=== PATIENT | female | born 1985 | race African-American/Black ===

== ENCOUNTER 2022-03-22 16:00 | Emergency (ER) | payer OTHER, SELFPAY ==
[2022-03-22 16:20] VITALS: BP 155/73; PULSE 93; RESP 20; TEMP 36.5; O2SAT 100
[2022-03-22 18:17] LABS: Appearance Urine Clear (Clear); Bilirubin Urine Negative (Negative); Color Urine Yellow (Yellow); Glucose Urine UA Negative (Negative); Ketones Urine Negative (Negative); Leukocyte Esterase Ur Negative LEU/UL (Negative); Nitrate Urine Negative (Negative); Protein Urine Negative (Negative); Specific Grav Ur >= 1.030 (1.001-1.035); Urobilinogen Urine 0.2 mg/dL (<2.0)
[2022-03-22 18:18] LABS: Mucus Urine Rare /lpf; RBC Urine 0-2 /hpf (0-2); Squamous Epithelial Cell Urine Few /hpf (Few); WBC Urine 0-3 /hpf
[2022-03-22 18:27] LABS: Add Urine Microscopic? YES; Blood Urine Trace-Intact (Negative)
--- NOTE | 2022-03-22 18:40 | ED.GENADULT ---
HPI - General Adult General Chief complaint: Urogenital-Female Stated complaint: VAG D/C X3D Time Seen by Provider: 03/22/22 16:45 History of Present Illness HPI narrative: Patient is a 36-year-old female who presents ER with vaginal discharge x3 days. Last unprotected sex 4 days ago and also 1/2 weeks ago. No urinary frequency urgency or dysuria. No lower abdominal pain. She was not told that she been exposed to an STI. She reports it is her same sexual partner but that she does not trust him. LMP 02/26/2022. Related Data Allergies Allergy/AdvReac Type Severity Reaction Status Date / Time No Known Allergies Allergy Verified 03/22/22 16:39 Review of Systems Review of Systems: All systems reviewed & are unremarkable except as noted in HPI and below Constitutional: Constitutional: Denies chills and Denies fever(s) Gastrointestinal: Gastrointestinal: Denies abdominal pain, Denies nausea and Denies vomiting Genitourinary: Genitourinary: Denies abnormal vaginal bleeding, Denies nocturia, Denies genital lesions, Denies dysuria, Denies pelvic pain and Reports vaginal discharge PMFSH Past Medical History Medical History (Updated 03/22/22 @ 18:45 by Mike Shaffer MD) Healthy female adult Surgical History Surgical History (Updated 03/22/22 @ 18:41 by Mike Shaffer MD) No history of previous surgery Social History Social History (Updated 03/22/22 @ 18:41 by Mike Shaffer MD) Smoking status: Never smoker Exam Narrative: GENERAL: Well-appearing, well-nourished, and in no acute distress. HEAD: Normocephalic, atraumatic. CHEST: Clear to auscultation. No respiratory distress. HEART: Regular rate and rhythm. Normal peripheral pulses. ABDOMEN: Soft, nontender, nondistended. : Normal external genitalia. Physiologic white discharge within the vagina, cervix closed and nonfriable, no vaginal bleeding. EXTREMITIES: Normal range of motion. No edema. NEURO: Alert and oriented x3. PSYCH: Normal mood and affect. Course Course Emergency Course: Patient would prefer to be treated for STI despite no evidence of STD at this time. Ceftriaxone here. Metronidazole and doxycycline for home. Vital Signs Vital signs: Vital Signs Temperature 97.7 F 03/22/22 16:20 Pulse Rate 93 03/22/22 16:20 Respiratory Rate 03/22/22 16:20 Blood Pressure 155/73 H 03/22/22 16:20 Pulse Oximetry 100 03/22/22 16:20 Oxygen Delivery Room Air 03/22/22 16:20 Temperature 97.7 F 03/22/22 16:20 Pulse Rate 93 03/22/22 16:20 Respiratory Rate 03/22/22 16:20 Blood Pressure 155/73 H 03/22/22 16:20 Pulse Oximetry 100 03/22/22 16:20 Oxygen Delivery Room Air 03/22/22 16:20 Medical Decision Making Vital Signs Vital Signs: Vital Signs Temperature 97.7 F 03/22/22 16:20 Pulse Rate 93 03/22/22 16:20 Respiratory Rate 03/22/22 16:20 Blood Pressure 155/73 H 03/22/22 16:20 Pulse Oximetry 100 03/22/22 16:20 Oxygen Delivery Room Air 03/22/22 16:20 Temperature 97.7 F 03/22/22 16:20 Pulse Rate 93 03/22/22 16:20 Respiratory Rate 03/22/22 16:20 Blood Pressure 155/73 H 03/22/22 16:20 Pulse Oximetry 03/22/22 16:20 Oxygen Delivery Room Air 03/22/22 16:20 Lab Data Labs: Lab Results 03/22/22 03/22/22 03/22/22 Range/Units 17:26 17:26 17:58 Urine Color Yellow (Yellow) Urine Appearance Clear (Clear) Urine pH 6.0 (5.0-9.0) Ur Specific [place] >= 1.030 (1.001-1.035) Urine Protein Negative (Negative) mg/dL Urine Glucose (UA) Negative (Negative) mg/dL Urine Ketones Negative (Negative) mg/dL Ur Blood (Man) Trace-intact (Negative) Urine Nitrate Negative (Negative) Urine Bilirubin Negative (Negative) Urine Urobilinogen 0.2 (<2.0) mg/dL Leukocyte Esterase Rfl Negative (Negative) BUSTER/UL Urine RBC 0-2 (0-2) /hpf Urine WBC 0-3 /hpf Ur Squamous Epith Cells Few (Few)
[2022-03-22] MEDS: cefTRIAXone 1 GM VIAL 0.5 GM IM (18:45)
== END 2022-03-22 18:51 | disposition home or self-care (01) ==
PROVIDERS: Emergency Provider Emergency Medicine
DX: N89.8 Other specified noninflammatory disorders of vagina (principal)
CPT/HCPCS: 81001; 81025; 87070; 87491; 87591; 87808; 96372; 99284; J0696

== ENCOUNTER 2022-06-05 23:46 | Emergency (ER) | payer OTHER, SELFPAY ==
--- NOTE | ~2022-06-05 | CT_ITS ---
EXAMINATION: CTA chest PE protocol DATE: 06/06/2022 02:12 INDICATION: Shortness of breath, chest pain, chest tightness for 2 days. Cough. Elevated d-dimer. TECHNIQUE: Computed tomography angiography (CTA) of the chest was performed with 100 mL Omnipaque-350 intravenous contrast timed to evaluate the pulmonary arteries. Coronal maximum intensity projection 3D-reconstructions were created by the technologist. Automated exposure control and iterative reconst ruction technique were employed. Exam dose: 314.12 mGy-cm total exam DLP. COMPARISON: 06/06/2022 PA and lateral chest FINDINGS: There is moderate opacification of the pulmonary arteries. No pulmonary embolism is detecte d. No thoracic aortic aneurysm or dissection. No hilar or mediastinal mass lesion or lymphadenopathy. Th e thyroid gland appears unremarkable. Heart size is within normal range. No pericardial or pleural effusion. The lung bases are clear. Included skeletal structures are unremarkable. IMPRESSION: Negative Reviewed, dictated and finalized at [facility]. Reviewed, dictated and finalized at [facility]. OPERATOR IMPRESSION: Negative
--- NOTE | ~2022-06-05 | XR_ITS ---
EXAMINATION: XR chest 2V 06/06/2022 00:25 INDICATION: Shortness of breath and chest pain PROCEDURE: 2 view chest COMPARISON: No prior studies for comparison. FINDINGS: The lungs are clear. The cardiomediastinal silhouette is within normal limits. There are no pleural effusions. There is no pneumothorax suspected. IMPRESSION: 1: NO ACUTE CARDIOPULMONARY DISEASE. Reviewed, dictated and finalized at location [facility]. TER FOREMAN
--- NOTE | 2022-06-05 23:47 | ECG_ITS ---
Measurements Intervals [place] Rate: 92 P: 61 TN: 167 QRS: 32 QRSD: 89 T: 1 QT: 328 QTc: 407 Interpretive Statements SINUS RHYTHM POSSIBLE LEFT ATRIAL ENLARGEMENT [-0.1mV P WAVE IN V1/V2] INCOMPLETE RIGHT BUNDLE BRANCH BLOCK NONSPECIFIC ST AND T-WAVE ABNORMALITY NO PREVIOUS ECG AVAILABLE FOR COMPARISON Electronically Signed On 06-06-2022 11:20:18 DIRECTOR OF MANAGED CARE by Doroteo Amador M.D.
[2022-06-05 23:52] VITALS: BP 146/85; PULSE 98; RESP 18; TEMP 36.2; O2SAT 100
[2022-06-06 00:03] LABS: Basophils Percent Auto 0.2 % (0.2-1.2); Eosinophils Absolute Auto 0.1 K/mm3 (0-0.3); Eosinophils Percent Auto 0.8 % (0-4.4); Hematocrit 38.1 % (37.0-47.0); Hemoglobin 12.3 g/dL (12.0-15.0); Immature Granulocyte Absolute 0.03 K/mm3 (0.00-0.031); Immature Granulocyte Percent A 0.3 % (0-0.5); Lymphocytes Absolute Auto 4.24 K/mm3 (0.9-3.2); Lymphocytes Percent Auto 43.7 % (18.3-44.2); Mean Corpuscular HGB Conc 32.3 g/dl (32-36); Mean Corpuscular Hemoglobin 27.4 pg (26-34); Mean Corpuscular Volume 84.9 fl (80-100); Mean Platelet Volume 8.6 fl (7.4-10.4); Monocytes Absolute Auto 0.5 K/mm3 (0.1-0.6); Monocytes Percent Auto 4.6 % (2.6-8.5); Neutrophils Absolute Auto 4.9 K/mm3 (1.3-6.7); Neutrophils Percent Auto 50.4 % (45.5-73.1); Platelet Count Result 367 k/mm3 (150-375); Red Blood Count 4.49 M/mm3 (4.2-5.4); Red Cell Distribution Width 13.2 % (11.5-14.5); White Blood Count 9.7 K/mm3 (4.5-10.0)
[2022-06-06 00:16] LABS: Alanine Aminotransferase 41 U/L (6-35); Albumin Level 4.8 g/dL (3.5-5.1); Alkaline Phosphatase 40 U/L (38-126); Anion Gap 11 mmol/L (8-16); Aspartate Amino Transferase 36 U/L (14-36); Bilirubin,Total 0.2 mg/dL (0.2-1.3); Blood Urea Nitrogen 14 mg/dL (7-17); Calcium 9.9 mg/dL (8.4-10.2); Carbon Dioxide 26 mmol/L (22-30); Chloride 102 mmol/L (98-107); Estimated CRCL calculation 89 ml/min; Estimated Glomerular Filt Rate > 60; Glucose 110 mg/dL (65-110); Lipase 84 U/L (23-300); Potassium 4.1 mmol/L (3.4-5.0); Sodium 139 mmol/L (137-145)
[2022-06-06 00:24] LABS: INR 1.1; Prothrombin Time 13.3 Seconds (11.1-14.7)
[2022-06-06 00:28] LABS: Troponin I < 0.012 ng/mL (0.000-0.034)
[2022-06-06] MEDS: ASPIRIN 81 MG CHEWABLE TABLET 324 MG PO (00:36)
--- NOTE | 2022-06-06 00:57 | ED.CHESTPAIN ---
HPI - Chest Pain General Chief Complaint: Chest Pain <Carolyn Mart PA-C - Last Filed: 06/08/22 10:14> Stated Complaint: Chest pain with inspiration, sob <CLARISSA Zambrano Last Filed: 06/08/22 10:14> Time Seen by Provider: 06/05/22 23:58 <Carolyn Mart PA-C - Last Filed: 06/08/22 10:14> Source: patient <Carolyn CLARISSA Carias Last Filed: 06/08/22 10:14> Mode of arrival: ambulatory <CLARISSA Zambrano Last Filed: 06/08/22 10:14> Limitations: no limitations <CLARISSA Zambrano Last Filed: 06/08/22 10:14> History of Present Illness HPI narrative: This is a 36 year old female that presents to the ER for chest pain ongoing over the last couple of days. Reports a sharp, substernal chest pain. Associated with cough, congestion and shortness of breath. Denies fever, or lower extremity edema. <Carolyn Mart PA-C - Last Filed: 06/08/22 10:14> Related Data Allergies/Adverse Reactions: Allergies Allergy/AdvReac Type Severity Reaction Status Date / Time No Known Allergies Allergy Verified 06/05/22 23:55 <Carolyn Mart PA-C - Last Filed: 06/08/22 10:14> Review of Systems Review of Systems: CONSTITUTIONAL: Denies fever ENT: Reports rhinorrhea, congestion CARDIOVASCULAR: Reports chest pain. Denies edema. RESPIRATORY: Reports cough and dyspnea. <Carolyn Mart PA-C - Last Filed: 06/08/22 10:14> All systems reviewed & are unremarkable except as noted in HPI and below <Carolyn Mart PA-C - Last Filed: 06/08/22 10:14> [facility] Past Medical History Medical History: Medical History (Updated 06/07/22 @ 00:01 by Lincoln Diehl) Healthy female adult <CALRISSA Zambrano Last Filed: 06/08/22 10:14> Surgical History Surgical History: Surgical History (Updated 03/22/22 @ 18:41 by Mike Shaffer MD) No history of previous surgery <Carolyn Mart PA-C - Last Filed: 06/08/22 10:14> Social History Social History: Social History (Updated 03/22/22 @ 18:41 by Mike Shaffer MD) Smoking status: Never smoker <Carolyn Mart PA-C - Last Filed: 06/08/22 10:14> Exam Narrative: GENERAL: Well-appearing, well-nourished, and in no acute distress. HEAD: Normocephalic, atraumatic. EYES: EOMI. ENT: Nares clear, no rhinorrhea or epistaxis. Mucous membranes moist. Oropharynx without tonsillar hypertrophy exudate or other lesions. Bilateral TMs pearly taveras non-bulging NECK: Supple. No adenopathy or masses. CHEST: No respiratory distress. Mild expiratory wheezing. No rales or rhonchi HEART: Regular rate and rhythm. No murmur heard. Normal peripheral pulses. EXTREMITIES: Normal range of motion. No edema. SKIN: Warm, dry, no rash. NEURO: No focal deficits. Alert and oriented x3. PSYCH: Normal mood and affect <Carolyn Mart PA-C - Last Filed: 06/08/22 10:14> Course Course Emergency Course: Patient's lung are now clear after albuterol inhaler <Carolyn Mart PA-C - Last Filed: 06/08/22 10:14> ASSISTED LIVING CARE MANAGER/PA Physician Supervision I have personally seen evaluated the patient in a [id number] contact and was involved in the medical decision management of the patient. <Anthony De La Cruz MD - Last Filed: 06/06/22 04:14> Vital Signs Vital signs: Vital Signs Temperature 97.1 F L 06/05/22 23:52 Pulse Rate 98 06/05/22 23:52 Respiratory Rate 18 06/05/22 23:52 Blood Pressure 146/85 H 06/05/22 23:52 Pulse Oximetry 100 06/05/22 23:52 Oxygen Delivery Room Air 06/05/22 23:52 Temperature 97.1 F L 06/05/22 23:52 Pulse Rate 96 06/06/22 03:52 Respiratory Rate 16 06/06/22 03:52 Blood Pressure 120/74 06/06/22 03:52 Pulse Oximetry 99 06/06/22 03:52 Oxygen Delivery Room Air 06/06/22 00:46 <Carolyn Mart PA-C - Last Filed: 06/08/22 10:14> Vital Signs Temperature 97.1 F L 06/05/22 23:52 Pulse Rate 98 06/05/22 23:52 Respiratory Rate 18 06/05/22 23:52 Blood Pres
[2022-06-06] MEDS: ALBUTEROL SULFATE (*SP) AEROSOL 1 PUFF 2 PUFF INHALATION (01:05)
[2022-06-06 01:06] VITALS: RESP 18
[2022-06-06 01:09] LABS: Influenza A QL RT-PCR Negative (Negative); Influenza B QL RT-PCR Negative (Negative); RSV RNA, RT-PCR Negative (Negative); SARS-CoV-2 RNA PCR Negative
[2022-06-06 01:22] LABS: D Dimer 0.92 ug/mL (<0.48)
[2022-06-06] MEDS: ACETAMINOPHEN 500 MG TABLET 1000 MG PO (03:23)
[2022-06-06 03:52] VITALS: BP 120/74; PULSE 96; RESP 16; O2SAT 99
== END 2022-06-06 04:28 | disposition home or self-care (01) ==
PROVIDERS: Physician Assistant; Emergency Provider Emergency Medicine
DX: J06.9 Acute upper respiratory infection, unspecified (principal); R07.9 Chest pain, unspecified; Z20.822 Contact with and (suspected) exposure to COVID-19; I45.10 Unspecified right bundle-branch block; R94.31 Abnormal electrocardiogram [ECG] [EKG]
CPT/HCPCS: 36415; 71046; 71275; 80053; 83690; 84484; 85025; 85380; 85610; 85730; 87637; 93005; 94640; 99284; A9270; Q9967